=== PATIENT | female | born 1975 | race Two or more races ===

== ENCOUNTER 2018-02-19 10:43 | Outpatient (CLI) | payer OTHER ==
[~2018-02-19 10:43] MED LIST: CLEOCIN HCL300 MG PO; FEOSOL325 MG PO; FOLITAB; LEVOTHYROXINE200 MCG PO; PERCOCET 5-3251 EACH PO; SURFAK240 M1 PO; SYNTHROID50 MCG
== END 2018-02-19 10:55 | disposition home or self-care (01) ==
LOC: MAMO-SONO 10:43
DX: E04.2 Nontoxic multinodular goiter (principal); N60.11 Diffuse cystic mastopathy of right breast; N60.12 Diffuse cystic mastopathy of left breast; Z12.31 Encounter for screening mammogram for malignant neoplasm of breast

== ENCOUNTER 2019-09-11 09:01 | Outpatient (CLI) | payer OTHER | END 2019-09-11 09:09 | disposition home or self-care (01) | LOC: MAMO-SONO 09:01 | DX: N64.4 Mastodynia (principal); Z12.31 Encounter for screening mammogram for malignant neoplasm of breast; Z87.898 Personal history of other specified conditions ==

== ENCOUNTER 2021-10-11 10:07 | Outpatient (CLI) | payer OTHER | END 2021-10-11 10:17 | disposition home or self-care (01) | LOC: SONOGRAMA 10:07 | PROVIDERS: ATTEND General Practice | DX: E06.5 Other chronic thyroiditis (principal); E04.2 Nontoxic multinodular goiter ==

== ENCOUNTER 2022-09-12 21:35 | Emergency (ER) | payer OTHER ==
[~2022-09-12] VITALS: Ht 157.5 cm; Wt 85.3 kg
[2022-09-12] MEDS ORDERED: TOPROL XL25 M1 (21:43)
[2022-09-12] MEDS ORDERED: SYNTHROID137 MCG (21:43)
[2022-09-12] MEDS ORDERED: TOPROL XL50 M1 (21:43)
== END 2022-09-14 00:58 | disposition home or self-care (01) ==
LOC: ER 21:35
DX: N93.8 Other specified abnormal uterine and vaginal bleeding (principal); D64.9 Anemia, unspecified; I10 Essential (primary) hypertension; Z88.6 Allergy status to analgesic agent; Z88.8 Allergy status to other drugs, medicaments and biological substances

== ENCOUNTER 2022-10-08 09:08 | Outpatient (CLI) | payer OTHER ==
[~2022-10-08 09:08] MED LIST changes: +SYNTHROID137 MCG; +TOPROL XL25 M1; +TOPROL XL50 M1
== END 2022-10-08 09:09 | disposition home or self-care (01) ==
LOC: LAB 09:08
PROVIDERS: ATTEND Radiology Diagnostic Radiology
DX: R10.2 Pelvic and perineal pain (principal)

== ENCOUNTER 2022-10-08 10:02 | Outpatient (CLI) | payer OTHER | END 2022-10-08 10:15 | disposition home or self-care (01) | LOC: MRI 10:02 | PROVIDERS: ATTEND Specialist | DX: R19.09 Other intra-abdominal and pelvic swelling, mass and lump (principal); R10.2 Pelvic and perineal pain | CPT/HCPCS: 72197 ==

== ENCOUNTER 2022-10-09 20:02 | Emergency (ER) | payer OTHER ==
[~2022-10-09] VITALS: Ht 157.5 cm; Wt 83.0 kg
== END 2022-10-10 14:26 | disposition home or self-care (01) ==
LOC: ER 20:02
DX: M79.662 Pain in left lower leg (principal); E03.9 Hypothyroidism, unspecified; N93.9 Abnormal uterine and vaginal bleeding, unspecified; I87.2 Venous insufficiency (chronic) (peripheral)

== ENCOUNTER 2022-11-12 08:07 | Outpatient (CLI) | payer OTHER | END 2022-11-12 08:08 | disposition home or self-care (01) | LOC: LAB 08:07 | PROVIDERS: ATTEND Colon & Rectal Surgery | DX: R10.32 Left lower quadrant pain (principal) ==

== ENCOUNTER 2022-11-12 09:40 | Outpatient (CLI) | payer OTHER | END 2022-11-12 09:44 | disposition home or self-care (01) | LOC: TOM 09:40 | PROVIDERS: ATTEND Colon & Rectal Surgery | DX: R10.32 Left lower quadrant pain (principal) ==

== ENCOUNTER 2022-11-19 10:08 | Day surgery (SDC) | payer OTHER | END 2022-11-19 16:30 | disposition home or self-care (01) | LOC: AMB-ENDOS 10:08 | PROVIDERS: ATTEND Colon & Rectal Surgery | DX: K57.30 Diverticulosis of large intestine without perforation or abscess without bleeding (principal); K64.8 Other hemorrhoids; Z20.822 Contact with and (suspected) exposure to COVID-19; R19.4 Change in bowel habit ==

== ENCOUNTER 2024-01-08 12:21 | Outpatient (CLI) | payer OTHER | END 2024-01-08 12:23 | disposition home or self-care (01) | LOC: RAD 12:21 | PROVIDERS: ATTEND Physical Medicine & Rehabilitation | DX: M75.22 Bicipital tendinitis, left shoulder (principal) ==

== ENCOUNTER 2025-09-20 09:34 | Outpatient (CLI) | payer OTHER ==
[~2025-09-20 09:34] MED LIST changes: +DICLOFENAC SODI75 MG PO; +SIMVASTATIN5 MG
== END 2025-09-20 09:47 | disposition home or self-care (01) ==
LOC: RAD 09:34
PROVIDERS: ATTEND Specialist
DX: R05.9 Cough, unspecified (principal); R10.20 Pelvic and perineal pain unspecified side